=== PATIENT | female | born 1930 | race Caucasian/White ===

== ENCOUNTER 2017-11-29 10:06 | Outpatient (CLI) | payer MEDICARE, MEDICAID ==
--- NOTE | 2017-11-29 10:50 | RAD ---
PA AND LATERAL CHEST: History: Dyspnea. Comparison: 01-02-15 FINDINGS: Heart size is enlarged. There are atherosclerotic changes of the aorta. There are chronic lung change s seen. Bones are demineralized. There is a kyphotic deformity to the spine. There is some loss of ve rtebral body height of one of the midthoracic vertebral bodies, stable. There are compression changes at what is probably T12 or possibly L1, stable. IMPRESSION: Cardiomegaly with chronic lung change. POS: [facility]
== END 2017-11-29 10:07 | disposition home or self-care (01) ==
LOC: RAD 10:06
PROVIDERS: ATTEND Internal Medicine Critical Care Medicine
DX: R06.00 Dyspnea, unspecified (principal); I51.7 Cardiomegaly
CPT/HCPCS: 36415; 71046; 80053; 85025

== ENCOUNTER 2018-04-07 10:07 | Observation (INO) | payer MEDICARE, MEDICAID ==
--- NOTE | 2018-04-07 10:52 | RAD ---
SINGLE VIEW CHEST: HISTORY: Chest heaviness and shortness of breath. COMPARISON: 11/08/2015 and 11/29/2017 FINDINGS: A single view of the chest shows an enlarged but stable cardiomediastinal with atherosclerotic calcif ications in the aorta. Increased interstitial markings are stable. There is no evidence of consolid ation, mass, or pleural effusion. Degenerative changes are seen in the spine. IMPRESSION: No evidence of acute cardiopulmonary disease. POS: C
[2018-04-07 10:55] LABS: #Eosinphils 0.4 thou/uL (0.0-0.7); #Lymphocytes 1.2 thou/uL (1.20-3.40); #Monocytes 0.6 thou/uL (0.11-0.59); #Neutrophils 4.6 thou/uL (1.40-6.50); %Basophils 0.2 % (0.0-1.0); %Eosinophils 5.3 % (0.0-10.0); %Lymphocytes 17.8 % (21.0-51.0); %Monocytes 8.7 % (0.0-10.0); Hemoglobin 13.5 g/dL (12.0-16.0); Mean Corpuscular HGB CONC 31.7 g/dL (32.0-36.0); Mean Corpuscular Hemoglobin 29.8 pg (27.0-31.0); Mean Platelet Volume 6.8 fL (7.4-10.4); Platelet Count 176 thou/uL (130-400); RBC Distribution Width 12.5 % (11.5-14.5); Red Blood Cell (RBC) Count 4.54 mill/uL (4.20-5.40); White Blood Cell (WBC) Count 6.8 thou/uL (4.8-10.8)
[2018-04-07 11:10] LABS: ALT (SGPT) 15 U/L (8-55); AST (SGOT) 25 U/L (5-34); Albumin 3.6 g/dL (3.4-4.8); Alkaline Phosphatase 64 U/L (40-150); Anion Gap 12 mmol/L (10-20); BUN (Urea Nitrogen) 11 mg/dL (9.8-20.1); Bilirubin, Total 1.2 mg/dL (0.2-1.2); CK (CPK) 96 U/L (29-168); Calc. Creatinine Clearance 0 mL/min (70-130); Calcium 8.8 mg/dL (7.8-10.44); Carbon Dioxide 25 mmol/L (23-31); Chloride 103 mmol/L (98-107); Estimated GFR-MDRD 75; Globulin 2.7 g/dL (2.4-3.5); Glucose 120 mg/dL (83-110); Lipase 61 U/L (8-78); Protein, Total 6.3 g/dL (6.0-8.3); Sodium 136 mmol/L (136-145)
[2018-04-07 15:05] LABS: Troponin I 0.012 ng/mL (< 0.028)
[2018-04-07] MEDS ORDERED: Acetaminophen 325 MG TAB PO PRN ×2 (15:38→17:36)
[2018-04-07] MEDS ORDERED: HYDROcodone/Acetaminophen 5/325 mg Tablet PO PRN (15:38)
[2018-04-07] MEDS ORDERED: Senokot S 8.6-50 MG TAB PO PRN (15:38)
[2018-04-07 16:22] VITALS: BMI 30.1
[2018-04-07] MEDS ORDERED: REFRESH PLUS (Carboxymethylcellulose 0.5%) Opth Drops EA EYE PRN (17:36)
[2018-04-07] MEDS ORDERED: [UNRECOGNIZED DRUG - OTHER] EA EYE PRN (17:36)
[2018-04-07] MEDS ORDERED: cloNIDine 0.1 MG TAB PO PRN (17:36)
[2018-04-07] MEDS ORDERED: hydrALAZINE 20 MG/ML VIAL SLOW IVP PRN (17:37)
[2018-04-07] MEDS ORDERED: Alendronate Sodium 70 mg Tablet PO SCH (17:45)
[2018-04-07 18:36] LABS: Troponin I 0.016 ng/mL (< 0.028)
--- NOTE | 2018-04-07 19:41 | PDOC.EVN ---
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 Chart reviewed in detail Restart home meds as ordered and add prn antihypertensives Rest agree w H&P. will follow
--- NOTE | 2018-04-07 19:45 | HP ---
PRIMARY CARE PHYSICIAN: Debby Berry DO CHIEF COMPLAINT: Chest pain. HISTORY OF PRESENT ILLNESS: This is a very pleasant 87-year-old female, who lives at the [facility] in [place]. She reports she had some chest pain with some difficulty breathing this morning. Reports that the breathing issues in the morning are not necessarily new with the chest pain and not feeling quite right, was new for her today. The patient's family reports the patient sees Dr. Weinstein. Reports that the last several visits have primarily been for vein studies in her legs. The patient does have a pertinent past medical history including atrial fibrillation, hypertension, and hyperlipidemia. EKG in the ER shows atrial fibrillation with controlled ventricular response, rate was 75, nonspecific ST abnormality, axis was right. RSR and the QR pattern in V1 suggests possible right ventricular conduction delay. The patient does report that the pain was relieved by nitroglycerin and aspirin given prior to the arrival to the emergency room. The patient does take Eliquis 2.5 mg b.i.d. for the atrial fibrillation. The patient will be admitted to the observation unit for further management. PAST MEDICAL HISTORY: As above. Hyperlipidemia, osteoporosis, GERD, kidney disease, dementia, atrial fibrillation rate controlled, and hypertension. PAST SURGICAL HISTORY: Includes left knee replacement and hysterectomy. PSYCHIATRIC HISTORY: Includes depression. SOCIAL HISTORY: Denies any alcohol or drug use. Denies any smoking history. KNOWN ALLERGIES: Bactrim and penicillins. CURRENT MEDICATIONS: 1. Methyldopa 250 mg once a day. 2. 200 mg b.i.d. 3. Alendronate 70 mg once a week. 4. Simvastatin 20 mg once a day. 5. Eliquis 2.5 mg b.i.d. 6. Aricept 10 mg once a day. 7. Clonidine 0.1 mg q.4 hours as needed. 8. OCuSOFT eyelid cleansing pads as needed. 9. Spironolactone 25 mg once a day. 10. Zantac 150 mg once a day. 11. Vitamin C 500 mg 1 tablet once a day. REVIEW OF SYSTEMS: CONSTITUTIONAL: The patient denies any chills or any fever. EYES: Denies any eye changes. Denies any blurry vision. ENT: Denies rhinorrhea or sore throat. CARDIOVASCULAR: Does report some chest pain. Denies any palpitations. RESPIRATORY: Reports intermittent shortness of breath. : Denies any dysuria or hematuria. GASTROINTESTINAL: Denies any abdominal pain, nausea, vomiting, diarrhea, or constipation. MUSCULOSKELETAL: Denies any recent falls, any injuries, or any pain. SKIN: Denies any changes or rash. NEUROLOGIC: Denies any numbness, tingling, focal sensory or motor deficits. All other systems reviewed and negative unless mentioned in the HPI. PHYSICAL EXAMINATION: VITAL SIGNS: Blood pressure 163/74, pulse is 59, respirations 18, pulse ox is 97% on room air, and temperature is 98.8. CONSTITUTIONAL: The patient appears nontoxic, is in no apparent distress, is alert and oriented to person, place, and time. HEENT: Head is atraumatic and normocephalic. Eyes, eyelids normal to inspection. Pupils are equal, round, and reactive to light. ENT, mouth exam is normal. Mucous membranes are moist. NECK: Normal range of motion. Trachea is midline. RESPIRATORY: Chest, chest movement is symmetrical. Breath sounds are clear. CARDIOVASCULAR: Heart rate is irregularly irregular. Systolic murmur is present. ABDOMEN: Nontender. Bowel sounds are heard. BACK: Normal range of motion. No tenderness. No CVA tenderness. EXTREMITIES: Upper extremities, normal range of motion. Radial pulses equal bilaterally. Lower extremities; inspection is normal. Range of motion normal. Edema present bilaterally +1. NEURO: The patient is oriented to person, place, and time. Speech is normal. PSYCHIATRIC: The patient has a normal affect, is oriented to person, place, and time. RADIOLOGY INTERPRETATION: Preliminary view x-ray is negative. No acute process. LABORATORY DATA: White blood cell count is 6.8, hemoglobin is 13.5, hematocrit 42.7, and platelet count is 176. Chemistry; sodium is 136, potassium is 4.0, chloride is 103, carbon dioxide is 25, gap is 12, BUN is 11, creatinine is 0.73, GFR is 75, glucose is 120, and calcium is 8.8. Liver enzymes are unremarkable. First troponin is negative at 0.011 and second 1 is 0.012. Lipase is 61. ASSESSMENT AND PLAN: 1. Chest pain. We will risk stratify given that chest pain was relieved with nitroglycerin. We will obtain a stress test. We will trend troponins. We will check lipids and TSH. The patient has multiple risk factors. 2. Hypertension. We will continue home medications. We will trend. We will monitor vital signs. 3. Atrial fibrillation, currently with rate controlled. We will continue Eliquis. 4. Gastroesophageal reflux disease. We will continue home medication. We will add gastrointestinal prophylaxis. 5. Hyperlipidemia. We will recheck lipids in the morning. Restart simvastatin. 6. Dementia. We will continue home medications. The patient appears at baseline is alert and oriented to person, place, and time. Family reports that she is at baseline as well. 7. Case will be discussed with Dr. Marin for continuity care. 8. Resuscitation status discussed with the patient and family. The patient states that she is a full code. The daughters and the patient reports that the surrogate decision maker will be all siblings. They did not designate a single surrogate decision maker. 9. Hospital course will be dependent on clinical findings. Job ID: [id number]
[2018-04-07] MEDS ORDERED: Atorvastatin Calcium 10 MG TAB PO SCH (21:00)
[2018-04-07] MEDS ORDERED: Famotidine 20 MG TAB PO SCH (21:00)
[2018-04-07] MEDS ORDERED: Donepezil HCl 10 MG TAB PO SCH (21:00)
[2018-04-07] MEDS: Ascorbic Acid 500 mg Chewable Tablet PO SCH (21:21)
[2018-04-07] MEDS: Multivit, Therapeutic 1 TAB PO SCH (21:21)
[2018-04-07] MEDS: CeleCOXIB 100 MG CAP PO SCH (21:22)
[2018-04-07] MEDS: Apixaban 2.5 MG TAB PO SCH (21:24)
[2018-04-07] MEDS: Polyethylene Glycol OPTH DROP 15 ML BOT R EYE SCH (21:24)
[2018-04-08] MEDS: Polyethylene Glycol OPTH DROP 15 ML BOT R EYE SCH ×5 (02:03→17:18)
[2018-04-08 05:31] LABS: #Eosinphils 0.2 thou/uL (0.0-0.7); #Monocytes 0.6 thou/uL (0.11-0.59); %Basophils 0.4 % (0.0-1.0); %Eosinophils 4.9 % (0.0-10.0); %Lymphocytes 20.4 % (21.0-51.0); %Monocytes 12.5 % (0.0-10.0); %Neutrophils 61.9 % (42.0-75.0); Hemoglobin 11.7 g/dL (12.0-16.0); Mean Corpuscular HGB CONC 32.4 g/dL (32.0-36.0); Mean Corpuscular Hemoglobin 30.6 pg (27.0-31.0); Mean Corpuscular Volume 94.4 fL (78.0-98.0); Mean Platelet Volume 6.5 fL (7.4-10.4); Platelet Count 173 thou/uL (130-400); RBC Distribution Width 12.4 % (11.5-14.5); Red Blood Cell (RBC) Count 3.81 mill/uL (4.20-5.40); White Blood Cell (WBC) Count 4.9 thou/uL (4.8-10.8)
[2018-04-08 05:59] LABS: ALT (SGPT) 10 U/L (8-55); AST (SGOT) 20 U/L (5-34); Albumin 3.1 g/dL (3.4-4.8); Alkaline Phosphatase 55 U/L (40-150); Anion Gap 12 mmol/L (10-20); BUN (Urea Nitrogen) 17 mg/dL (9.8-20.1); Calc. Creatinine Clearance 58 mL/min (70-130); Calcium 8.7 mg/dL (7.8-10.44); Carbon Dioxide 25 mmol/L (23-31); Chloride 103 mmol/L (98-107); Estimated GFR-MDRD 73; Globulin 2.2 g/dL (2.4-3.5); Glucose 82 mg/dL (83-110); Protein, Total 5.3 g/dL (6.0-8.3); Sodium 136 mmol/L (136-145)
[2018-04-08] MEDS ORDERED: Spironolactone 25 MG TAB PO SCH (08:00)
[2018-04-08] MEDS ORDERED: Famotidine 20 MG TAB PO SCH (09:00)
--- NOTE | 2018-04-08 09:57 | PDOC.PN ---
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 All stated surrogate decision making would be done as a family with all siblings involved. Vital Signs & Weight: Vital Signs (12 hours) Temp Pulse Resp BP Pulse Ox 04/08/18 09:00 98 F 60 18 115/89 89 L 04/08/18 05:00 98.6 F 66 18 109/55 L 92 L 04/07/18 23:34 99.1 F 62 20 133/61 94 L Weight Weight 72.393 kg I&O: 04/07/18 04/08/18 04/09/18 06:59 06:59 06:59 Intake Total 1080 Output Total 500 Balance 580 Result Diagrams: 04/08/18 05:02 04/08/18 05:02 Phys Exam - Physical Examination HEENT: PERRLA, moist MMs Neck: no nodes, no JVD Respiratory: no wheezing, no rales Cardiovascular: RRR, no significant murmur Gastrointestinal: soft, non-tender Musculoskeletal: no edema, edema present +1 bilaterally Neurological: non-focal, normal sensation, moves all 4 limbs Lymphatic: no nodes Psychiatric: normal affect, A&O x 3 Skin: no rash, normal turgor, cap refill <2 seconds Dx/Plan (1) Chest pain Code(s): R07.9 - CHEST PAIN, UNSPECIFIED Status: Acute (2) Afib Code(s): I48.91 - UNSPECIFIED ATRIAL FIBRILLATION Status: Chronic (3) HTN (hypertension) Code(s): I10 - ESSENTIAL (PRIMARY) HYPERTENSION Status: Chronic - Plan cont current plan of care Patient will have stress and Echo -: Will have PT evaluate -: Will go back to the [facility] [place]. -: Will continue to monitor, recheck labs in AM * . Review of Systems - Medications/Allergies Allergies/Adverse Reactions: Allergies Allergy/AdvReac Type Severity Reaction Status Date / Time Penicillins Allergy Verified 04/07/18 16:26 sulfamethoxazole Allergy Verified 04/07/18 16:26 [From Bactrim] trimethoprim [From Bactrim] Allergy Verified 04/07/18 16:26 Medications: Current Medications Acetaminophen (Tylenol) 650 mg PO Q4H PRN PRN Reason: Headache/Fever/Mild Pain (1-3) Last Admin: 04/08/18 02:03 Dose: 650 mg Hydrocodone Bitart/Acetaminophen ([place] 5/325) 1 tab PO Q4H PRN PRN Reason: Moderate Pain (4-6) Apixaban (Eliquis) 2.5 mg PO BID [facility] Last Admin: 04/07/18 21:24 Dose: 2.5 mg Ascorbic Acid (Vitamin C) 500 mg PO BID [facility] Last Admin: 04/07/18 21:21 Dose: 500 mg Atorvastatin Calcium (Lipitor) 10 mg PO [facility] Last Admin: 04/07/18 21:22 Dose: 10 mg Carboxymethylcellulose (Refresh Plus 0.5%) 2 each EA EYE QIDPRN PRN PRN Reason: Dry Eyes Celecoxib (Celebrex) 200 mg PO BID [facility] Last Admin: 04/07/18 21:22 Dose: 200 mg Clonidine (Catapres) 0.1 mg PO Q4H PRN PRN Reason: SBP >= 180 Donepezil HCl (Aricept) 10 mg PO HS [facility] Last Admin: 04/07/18 21:21 Dose: 10 mg Famotidine (Pepcid) 20 mg PO DAILY [facility] Hydralazine HCl (Apresoline) 10 mg SLOW IVP Q4H PRN PRN Reason: sbp>170 Methyldopa (Aldomet) 250 mg PO BID [facility] Last Admin: 04/07/18 21:23 Dose: 250 mg Multivitamins (Theragran) 1 tab PO BID [facility] Last Admin: 04/07/18 21:21 Dose: 1 tab Non-Formulary Medication (Eyelid Cleanser Comb No.7 [Ocusoft Lid Scrub Kit]) 1 applic EA EYE BIDPRN PRN PRN Reason: Eyelid irritation Propylene Glycol (Systane Opth Drop 15ml Bot) 2 drop R EYE Q4HR [facility] Last Admin: 04/08/18 06:58 Dose: Not Given Senna/Docusate Sodium (Senokot S) 2 tab PO BID PRN PRN Reason: Constipation Sodium Chloride (Flush - Normal Saline) 10 ml IVF Q12HR PRN PRN Reason: Saline Flush Last Admin: 04/07/18 21:25 Dose: 10 ml Spironolactone (Aldactone) 25 mg PO QAM- [facility]
[2018-04-08] MEDS ORDERED: ADENOSINE 60 MG/20 ML VIAL ONE (10:12)
[2018-04-08] MEDS: CeleCOXIB 100 MG CAP PO SCH (12:34)
[2018-04-08] MEDS: Ascorbic Acid 500 mg Chewable Tablet PO SCH (12:34)
[2018-04-08] MEDS: Multivit, Therapeutic 1 TAB PO SCH (12:34)
[2018-04-08] MEDS: Apixaban 2.5 MG TAB PO SCH (13:41)
--- NOTE | 2018-04-08 15:16 | NM ---
MYOCARDIAL PERFUSION STUDY: DATE: 04/08/18 HISTORY: Chest pain, hypertension, dyslipidemia. RADIOPHARMACEUTICALS: 27 mCi technetium-99m sestamibi, IV at stress. 10.9 mCi technetium-99m sestamibi, IV at rest. MEDICATIONS: 13.4 mL (40.3 mg) of Adenosine, IV. FINDINGS: There is a small, relatively fixed defect seen within the anterior mid and distal left ventricular wa ll on both the resting and stress acquisitions. No reversible defect is identified. Quantitative anal ysis also shows no significant reversible defect. Gated images show normal ventricular wall motion an d wall thickening. The calculated left ventricular ejection fraction is 73%. IMPRESSION: 1. Normal myocardial perfusion study without evidence of a reversible defect seen to suggest ischemi a. Relatively fixed defect in the anterior left ventricular wall is likely attributable to soft tiss ue attenuation as there is normal ventricular wall thickening and wall motion in this region. 2. Normal LVEF of 73%. POS: [facility]
[2018-04-08 17:06] VITALS: BP 145/62; TEMP 97.9
--- NOTE | 2018-04-10 08:36 | STRESS ---
Acquisition Time: 2018-04-08 10:25:30 Total Exercise Time: 00:04:00 Test Indications: CHEST PAIN Medications: Protocol: ADENOSINE Max HR: 071 BPM 54% of Pred: 131 BPM Max BP: 128/060 mmHG Max Work Load: 1.0 METS RESTING ECG: ATRIAL FIBRILLATION AT 56 BPM WITH RIGHT AXIS DEVIATION; NONSPECIFIC T-WAVE CHANGES SYMPTOMS: NONE NORMAL BP RESPONSE ECTOPY: NONE ECG STRESS: NO SIGNIFICANT CHANGES INTERPRETATION: INDETERMINATE ECG/AWAIT NUCLEAR IMAGES FOR DEFINITIVE DIAGOSIS Confirmed by PAPI LILLY [id number]) on 04/10/2018 8:36:06 AM Referred By: LALI STEWART Confirmed By:PAPI LILLY
== END 2018-04-08 17:08 ==
LOC: ERS 10:07 → 2SW 13:56
PROVIDERS: ADMIT Family Medicine; ATTEND Family Medicine
DX: R07.9 Chest pain, unspecified (principal); R06.02 Shortness of breath; I10 Essential (primary) hypertension; E78.5 Hyperlipidemia, unspecified; K21.9 Gastro-esophageal reflux disease without esophagitis; M81.0 Age-related osteoporosis without current pathological fracture; F03.90 Unspecified dementia, unspecified severity, without behavioral disturbance, psychotic disturbance, mood disturbance, and anxiety; F32.9 Major depressive disorder, single episode, unspecified; I48.2 Chronic atrial fibrillation; Z79.01 Long term (current) use of anticoagulants; Z79.83 Long term (current) use of bisphosphonates; Z79.899 Other long term (current) drug therapy; Z88.0 Allergy status to penicillin; Z88.2 Allergy status to sulfonamides
CPT/HCPCS: 71045; 78452; 80053 ×2; 82550; 83690; 84484 ×2; 85025 ×2; 93005; 93017; 93306; 94760; 97139; 99285; A9500; G0378 ×2; 36415; J0153